=== PATIENT | male | born 1960 | race Caucasian/White ===

== ENCOUNTER 2016-10-22 06:31 | Day surgery (SDC) | payer OTHER ==
--- NOTE | 2016-10-03 09:58 | HP ---
DATE OF ADMISSION: 10/22/2016 Patient is to be admitted to the ambulatory surgical service of [facility] on 10/22/16. HISTORY: This is a 56-year-old man admitted through the [facility] after management of a rather longstanding enlarging symptomatic right inguinal hernia. Patient with contralateral repair previously. No underlying GI or complaints to suggest predisposition of hernia formation. The patient does suffer with asthma, which obviously is a predisposing factor. PATIENTS PAST MEDICAL HISTORY: Significant for hypercholesterolemia, hypertension, and asthma. PAST SURGICAL HISTORY: Significant for bilateral knee replacement in 2011 as well as a prior single hip replacement in 2009. ALLERGIES: PENICILLIN. REGULAR MEDICATIONS: Advair, Valsartan, Pantoprazole, Bystolic, Vascepa. SOCIAL HISTORY: Negative for tobacco, positive alcohol (2 drinks weekly). FAMILY HISTORY: Father, age 79, in good health. Mother , age 72, secondary to cancer/details not provided. Siblings, 1 healthy. REVIEW OF SYSTEMS: Patient states that he has been known to have reflux and is followed by his PMD for such. PHYSICAL EXAMINATION: Abdomen: Patient examined in erect and supine positions. Obvious large reducible right inguinal hernia. Left groin consistent with a prior left inguinal hernia with no recurrence. Testes unremarkable. Chronically incarcerated ventral hernia involving the central ring of the abdomen extending up into the midline, large diastasis recti. IMPRESSION: Symptomatic enlarging right inguinal hernia. PLAN: Open right inguinal hernia repair with mesh. Patient not felt to reap all the advantages of laparoscopic inguinal hernia surgery with contralateral repair. Patient will need to undergo repair of his ventral hernia in the future, as well. Indications, alternatives, possible complications were reviewed. Consent obtained. Patient will be seen preoperatively by Dr. Chanell Nuñez. Please refer to those notes for those medical details. GABBY COREAS M.D. [id number] cc: Chanell Nuñez MD [facility]
[2016-10-20 10:59] VITALS: BMI 27.6
[2016-10-22] MEDS ORDERED: TAMSULOSIN HCL 0.4 MG CAP.ER.24H (FP) ONE (07:04)
[2016-10-22] MEDS ORDERED: LEVOFLOXACIN 500 MG IVPB 100 ML IVPB ONE (07:05)
[2016-10-22] MEDS ORDERED: PROPOFOL 20 ML ONE (07:36)
[2016-10-22] MEDS ORDERED: MIDAZOLAM HCL 2 MG/2 ML SINGLE DOSE VIAL ONE (07:36)
[2016-10-22] MEDS ORDERED: ROCURONIUM BROMIDE 50 MG/5 ML VIAL ONE ×2 (07:36→08:17)
[2016-10-22] MEDS ORDERED: ALBUTEROL SO4 6.7 GM HFA INHALER IH ONE (07:52)
[2016-10-22] MEDS ORDERED: LIDOCAINE HCL/PF 2% SDV 5ML VIAL ONE ×2 (08:00→09:40)
[2016-10-22] MEDS ORDERED: LEVOFLOXACIN 500 MG PREMIX BAG IVPB ONE (08:12)
[2016-10-22] MEDS ORDERED: DEXAMETHASONE SOD PHOSPHATE 4 MG/1 ML VIAL ONE (08:35)
[2016-10-22] MEDS ORDERED: ONDANSETRON 4 MG/2 ML VIAL ONE ×2 (08:35→09:38)
[2016-10-22] MEDS ORDERED: KETOROLAC TROMETHAMINE 30 MG/1 ML VIAL ONE (08:37)
[2016-10-22] MEDS ORDERED: oxyCODONE HCL 5 MG TABLET PO PRN (08:38)
[2016-10-22] MEDS ORDERED: ONDANSETRON 4 MG/2 ML VIAL IVPUSH PRN (08:38)
[2016-10-22] MEDS ORDERED: GLYCOPYRROLATE 0.2 MG/1 ML VIAL ONE (08:40)
[2016-10-22] MEDS ORDERED: NEOSTIGMINE METHYLSULFATE 0.5 MG/ML - 10 ML MDV ONE (08:40)
[2016-10-22] MEDS ORDERED: LACTATED RINGERS SOLUTION 1,000 ML IV SCH (08:45)
[2016-10-22] MEDS ORDERED: BUPIVACAINE HCL/PF 0.5% (5MG/ML) 10 ML VIAL IJ ONE ×2 (09:40→09:42)
[2016-10-22 11:04] VITALS: TEMP 97.8
[2016-10-22] MEDS ORDERED: oxyCODONE HCL 5 MG TABLET ONE ×2 (11:47→13:09)
[2016-10-22 13:30] VITALS: BP 135/82; PULSE 94
--- NOTE | 2016-10-22 15:35 | OP ---
DATE OF OPERATION: 10/22/2016 PREOPERATIVE DIAGNOSIS: Right inguinal hernia. POSTOPERATIVE DIAGNOSIS: Pantaloon right inguinal hernia. PROCEDURE: Open repair right pantaloon inguinal hernia with mesh/intermediate wound closure (8 cm). OPERATING SURGEON: Gabby Dubon MD RECOVERY ADVOCATE: Mario Lam DO ANESTHESIA: Noelle Neal MD (General) HISTORY: A 56-year-old man admitted to the hospital for repair of a symptomatic , enlarging right inguinal hernia. Indications, alternatives, and possible complications reviewed. Consent obtained. DESCRIPTION OF PROCEDURE: With the patient in the supine position, using general anesthesia, the right groin was prepped and draped in sterile fashion using chlorhexidine. An 8-cm right groin incision was made between the right pubic tubercle and right iliac spine. The incision was deepened into the subcutaneous space. All identified vessels in the subcutaneous space were clamped, divided, and ligated. The external oblique aponeurosis was opened in the direction of its fibers. The ilioinguinal nerve was identified and spared. The undersurface of the split external oblique aponeurosis was swept clean to the level of the pubic tubercle. At the pubic tubercle, a Ayush drain was placed around the cord structures. Exploration of the groin revealed an obvious large pantaloon hernia. The component adherent to the cord structures was without difficulty, exercising care not to enter the vas or its vascular supply. That portion of the sac was mobilized to the level of the preperitoneal fat and inferior epigastric vessels. The direct portion of the pantaloon hernia was then addressed by incising the transversalis fascia throughout its entire length. The entire hernia was reduced. The transversalis fascia was imbricated in 2 layers over the Davol plug, re-contouring to permit only fingertip entrance. This was accomplished with a continuous 2-0 Prolene suture. A Davol plug was placed in the preperitoneal space and tacked in place circumferentially. The attenuated transversalis fascia was then imbricated in 2 layers over the Davol plug, reconstituting the internal ring to permit only fingertip entrance. This was accomplished with a continuous 2-0 Prolene suture. An overlay mesh was then fashioned about the entire inguinal floor. It was tacked in place circumferentially with 2-0 Prolene sutures. It was keyholed superiorly where it was wrapped around the cord, buttressing the internal ring. The cord and nerve were returned to their anatomic positions. The overlying external oblique aponeurosis was closed in continuous fashion using 3-0 Vicryl suture material. After adequate hemostasis, the wound was closed in layers. Debra fascia was approximated with interrupted 3-0 chromic suture. Subcuticular layer was approximated with interrupted 4-0 Biosyn suture. Skin was closed using 4-0 Biosyn subcuticular space in continuous fashion. Prior to complete closure of the wound, 10 mL of 0.5% Marcaine was freely instilled. Dermabond applied. Procedure terminated. INSTRUMENT COUNT: Correct. ESTIMATED BLOOD LOSS: Minimal. SPECIMEN: None. DRAIN: None. The patient tolerated the procedure. The procedure was terminated. GABBY DUBON M.D. [id number] MTDD
== END 2016-10-22 13:35 | disposition home or self-care (01) ==
LOC: JASU-SURG 06:31
PROVIDERS: ATTEND Surgery
PROC: 0YU50JZ Supplement Right Inguinal Region with Synthetic Substitute, Open Approach (ICD-10-PCS; principal; 2016-10-22 08:00)
DX: K40.90 Unilateral inguinal hernia, without obstruction or gangrene, not specified as recurrent (principal)
CPT/HCPCS: 94760

== ENCOUNTER 2022-08-25 13:22 | Emergency (ER) | payer OTHER ==
[2022-08-25 13:35] VITALS: BP 115/71; PULSE 84; RESP 18; TEMP 97.7; BMI 26.9
[2022-08-25] MEDS ORDERED: ACETAMINOPHEN 1000 MG/100 ML BAG IVPB ONE (14:15)
[2022-08-25] MEDS ORDERED: ACETAMINOPHEN INJECTION 100 ML IVPB ONE (14:16)
[2022-08-25 14:45] LABS: HEMATOCRIT 46.3 % (35.4-49); HEMOGLOBIN 15.3 GM/dL (11.7-16.9); MCH 29.7 pg (25.7-33.7); MEAN CELL VOLUME 89.8 fl (80-96); MEAN PLT VOLUME 7.9 fl (7.5-11.1); PLATELET COUNT 374 10^3/uL (134-434); RBC 5.15 M/mm3 (4.00-5.60); RDW 13.7 % (11.9-15.9); WHITE BLOOD COUNT 17.5 K/mm3 (4.0-10.0)
[2022-08-25 14:48] LABS: INR 1.2 (0.83-1.09); PROTHROMBIN TIME (PATIENT) 13.9 SEC (9.7-13.0)
[2022-08-25 14:50] LABS: ACTIVATED PTT 32.7 SECONDS (25.2-36.5)
[2022-08-25 15:02] LABS: POTASSIUM 4.2 mmol/L (3.5-5.1)
[2022-08-25 15:04] LABS: CALCIUM 9.2 mg/dL (8.5-10.1)
[2022-08-25 15:05] LABS: ALBUMIN 3.5 g/dl (3.4-5.0); BLOOD UREA NITROGEN 13.9 mg/dL (7-18)
[2022-08-25 15:07] LABS: ANISOCYTOSIS 0
[2022-08-25 15:10] LABS: BILIRUBIN,TOTAL 0.6 mg/dL (0.2-1); TOT PROT 6.7 g/dl (6.4-8.2)
== END 2022-08-25 17:33 | disposition home or self-care (01) ==
LOC: JER 13:22
PROC: 3E033NZ Introduction of Analgesics, Hypnotics, Sedatives into Peripheral Vein, Percutaneous Approach (ICD-10-PCS; principal; 2022-08-25)
DX: R07.9 Chest pain, unspecified (principal); R06.89 Other abnormalities of breathing; M25.519 Pain in unspecified shoulder; Z20.822 Contact with and (suspected) exposure to COVID-19
CPT/HCPCS: 0241U-QW; 36415; 71275-TC; 80053; 84484; 85025; 85610; 85730; 86850; 86900; 86901; 87040; 93005; 93010; 99285-25; Q9967

== ENCOUNTER 2023-02-03 08:23 | Emergency (ER) | payer OTHER ==
[2023-02-03 08:49] VITALS: RESP 18; BMI 26.9
[2023-02-03 13:34] VITALS: BP 115/70; PULSE 78; TEMP 36.6
== END 2023-02-03 12:30 | disposition home or self-care (01) ==
LOC: JER 08:23
DX: H10.32 Unspecified acute conjunctivitis, left eye (principal); R09.81 Nasal congestion; J06.9 Acute upper respiratory infection, unspecified; Z20.822 Contact with and (suspected) exposure to COVID-19
CPT/HCPCS: 0241U-QW; 71046-TC-FY; 99284-25